=== PATIENT | female | born 1950 | race Caucasian/White ===

== ENCOUNTER → 2016-08-11 | Outpatient (CLI) | payer MEDICARE ==
[~2016-08-11] VITALS: Ht 154.9 cm; Wt 68.0 kg
[~2016-08-11] MED LIST: ACYC-109 PO; ASP81CT PO; ATOR40TA PO; ATOR80TA76 PO; CATHETER FLUSH 10 ML SYR IV PRN; CHOL200035 PO; CIPR500T78 PO; CYCL10TA9 PO; LISI-594 PO; LOVA40TA2 PO; METH4TAB PO; METO25TA2 PO; MULT-963 PO; NO CURRENT HOME MEDS; OMEG-9 PO; OMEG1CAP58 PO; ONDA4TAB11 PO; ONDA4TAB8 PO; PNT40TEC PO; PROM25SU43 RC; RANI300T4 PO; REGADENOSON 0.4 MG/5 ML SYR (LEXISCAN) IV ONE; RNT150T PO; SCOP1PAT TD
[2016-08-11 09:11] VITALS: BP 134/58
[2016-08-11 09:25] VITALS: BP 137/86
[2016-08-11 09:28] VITALS: BP 132/73
--- NOTE | 2016-08-12 08:37 | STRESS TEST ---
PROCEDURE PHYSICIAN: JOANNE LUIS DATE OF PROCEDURE: 08/11/2016 RESTING AND POST REGADENOSON TECHNETIUM 99M TETROFOSMIN SPECT CT IMAGING ORDERING PHYSICIAN: Dr. Luis PRIMARY PHYSICIAN: Dr. Jang CLINICAL DIAGNOSES: 1. Palpitations. 2. Shortness of breath. Baseline images were carried out after injection of 10.35 mCi technetium 99m tetrofosmin. This was followed by 0.4 mg of regadenoson and 31.1 mCi of technetium 99m tetrofosmin for stress imaging. The electrocardiogram showed sinus rhythm with incomplete right bundle branch block at baseline and this did not change significantly with the regadenoson infusion. The patient tolerated the procedure well. Review of images at rest and following stress, does not indicate any significant perfusion defects consistent with myocardial ischemia or infarction. Gated images show normal global left ventricular systolic function with mood regional wall motion. Left ventricular ejection fraction is calculated to be 64%. Left ventricular end-diastolic volume is 29 mL. TID is absent (0.95). CONCLUSIONS: 1. No evidence of any significant myocardial ischemia or infarction on this study. 2. Normal regional wall motion. 3. Normal global left ventricular systolic function with a calculated ejection fraction of 64%. 4. Normal left ventricular cavity size. Job ID: [id number] Dictated Date: 08/11/2016 17:16:59 Oil Separator Date: 08/12/2016 08:32:25 / cliff
== END ==
LOC: CARD 07:28
PROVIDERS: ATTEND Internal Medicine Cardiovascular Disease
DX: R00.2 Palpitations (principal); R06.02 Shortness of breath; I25.10 Atherosclerotic heart disease of native coronary artery without angina pectoris; I65.23 Occlusion and stenosis of bilateral carotid arteries; E78.4 Other hyperlipidemia; I10 Essential (primary) hypertension
CPT/HCPCS: 78452; 93017

== ENCOUNTER → 2016-08-13 | Outpatient (CLI) | payer MEDICARE ==
[~2016-08-13] MED LIST changes: -CATHETER FLUSH 10 ML SYR IV PRN; -REGADENOSON 0.4 MG/5 ML SYR (LEXISCAN) IV ONE
--- NOTE | 2016-08-17 10:16 | ECHOCARDIOGRAPHY REPORT ---
PROCEDURE PHYSICIAN: JOANNE LUIS DATE OF PROCEDURE: 08/13/2016 TWO DIMENSIONAL ECHOCARDIOGRAM REPORT PRIMARY PHYSICIAN: Dr. Jang OTHER PHYSICIAN: REFERRING PHYSICIAN: ORDERING PHYSICIAN: Dr. Luis INDICATION FOR THE PROCEDURE: 1. Palpitations. 2. Shortness of breath. MEASUREMENTS DERIVED VALUES LV DIAMETER (LAX) NORMALS NORMALS Diastolic 4 (3.6-5.2) Eject. Fract. (60%+/-6%) Systolic (2.3-3.9) Diastolic Vol. % Shortening (0.22-0.42) Systolic Vol. Aortic Root 2.8 IVS THICKNESS Diastolic 1.2 (0.6-1.1) LVPW THICKNESS Diastolic 1.2 (0.6-1.1) LA DIAMETER Systolic 3 (2.1-3.7) DESCRIPTION: Two-dimensional echocardiography shows normal global left ventricular systolic function with normal regional wall motion. Aortic, mitral and tricuspid valve leaflets show good leaflet excursion. There is no significant pericardial effusion. Doppler imaging did not indicate significant valvular regurgitation or stenosis. Mitral inflow is consistent with grade 1 diastolic dysfunction of the left ventricle. There is no evidence of any significant intracardiac shunt on this transthoracic echocardiographic study. Inferior vena cava is of normal size and exhibits normal inspiratory collapse. CONCLUSIONS: 1. Normal global left ventricular systolic function with an ejection fraction of approximately 65 to 70%. 2. Borderline concentric left ventricular hypertrophy. 3. Mild diastolic dysfunction of the left ventricle. 4. No significant valvular regurgitation or stenosis. Job ID: [id number] Dictated Date: 08/17/2016 09:07:08 Safety Representative Date: 08/17/2016 10:10:27 / tbk
== END ==
LOC: CARD 12:17
PROVIDERS: ATTEND Internal Medicine Cardiovascular Disease
DX: I25.10 Atherosclerotic heart disease of native coronary artery without angina pectoris (principal); I65.23 Occlusion and stenosis of bilateral carotid arteries; E78.4 Other hyperlipidemia; I10 Essential (primary) hypertension; R00.2 Palpitations; R06.02 Shortness of breath
CPT/HCPCS: 93306

== ENCOUNTER → 2018-09-09 | Outpatient (CLI) | payer MEDICARE ==
[~2018-09-09] MED LIST changes: +CATHETER FLUSH 10 ML SYR IV PRN; +REGADENOSON 0.4 MG/5 ML SYR (LEXISCAN) IV ONE; -SCOP1PAT TD; +SCOP1PAT11 TD
== END ==
LOC: CARD 07:16
PROVIDERS: ATTEND Nurse Practitioner Family
DX: I25.10 Atherosclerotic heart disease of native coronary artery without angina pectoris (principal); I77.9 Disorder of arteries and arterioles, unspecified; I10 Essential (primary) hypertension; E78.5 Hyperlipidemia, unspecified; R06.09 Other forms of dyspnea
CPT/HCPCS: 78452; 93017

== ENCOUNTER → 2021-01-22 | Outpatient (CLI) | payer MEDICARE ==
[~2021-01-22] MED LIST changes: -CATHETER FLUSH 10 ML SYR IV PRN; -REGADENOSON 0.4 MG/5 ML SYR (LEXISCAN) IV ONE
--- NOTE | 2021-01-23 11:46 | Diagnostic Imaging Report ---
INDICATION: Routine screening. COMPARISON is made with prior mammograms from 09/09/2009 and 03/15/2009. 2-D and 3-D bilateral screening mammography was performed with CAD. FINDINGS: Both breasts are primarily involutional. No dominant mass or malignant-appearing microcalcifications are seen. There are benign calcifications present. Axillae are unremarkable. IMPRESSION: BI-RADS Category 2 No mammographic features suspicious for malignancy are identified. ACR BI-RADS Category 2: Benign findings. Result letter will be mailed to the patient. Note: At least 10% of breast cancer is not imaged by mammography. Dictated by: Dictated on workstation # [id number]
== END ==
LOC: RAD 14:45
PROVIDERS: ATTEND Registered Nurse
DX: Z12.31 Encounter for screening mammogram for malignant neoplasm of breast (principal)
CPT/HCPCS: 77063; 77067

== ENCOUNTER → 2021-10-31 | Outpatient (CLI) | payer MEDICARE ==
[~2021-10-31] MED LIST changes: +REGADENOSON 0.4 MG/5 ML SYR (LEXISCAN) IV ONE; +SCOP1PAT10 TD; -SCOP1PAT11 TD
[2021-10-31] MEDS: CATHETER FLUSH 10 ML SYR IVP PRN ×2 (07:48→09:15)
[2021-10-31 09:14] VITALS: BP 130/99
--- NOTE | 2021-11-05 14:44 | STRESS TEST ---
DATE OF SERVICE: 10/31/2021 RESTING AND POST REGADENOSON TECHNETIUM-99M TETROFOSMIN SPECT CT IMAGING Baseline images were carried out after injection of 10.88 mCi of technetium-99m Tetrofosmin. This was followed by 0.4 mg Regadenoson and 30.5 mCi of technetium-99m Tetrofosmin for stress imaging. The patient tolerated the procedure well. The electrocardiogram did not indicate significant changes. There was subtle nonspecific ST abnormality at baseline that did not change significantly. Review of images at rest and following stress does not indicate any significant perfusion defects consistent with myocardial ischemia or infarction. Gated images show normal global left ventricular systolic function with normal regional wall motion. Left ventricular ejection fraction is calculated to be 66%. CONCLUSIONS: 1. No evidence of any significant myocardial ischemia or infarction on this study. 2. Normal regional wall motion. 3. Normal global left ventricular systolic function with a calculated ejection fraction of 66%. Job ID: [id number] DocumentID: [id number] Dictated Date: 11/05/2021 09:17:00 Accountant Certified Public Date: 11/05/2021 14:44:16 Dictated By: JOANNE SHAFFER MD, MA, FACP, FACC,
== END ==
LOC: CARD 08:00
PROVIDERS: ATTEND Nurse Practitioner Family
DX: I25.10 Atherosclerotic heart disease of native coronary artery without angina pectoris (principal)
CPT/HCPCS: 78452; 93017; A9502

== ENCOUNTER → 2022-02-25 | Outpatient (CLI) | payer MEDICARE ==
[~2022-02-25] MED LIST changes: -REGADENOSON 0.4 MG/5 ML SYR (LEXISCAN) IV ONE
--- NOTE | 2022-02-25 16:31 | Diagnostic Imaging Report ---
INDICATION: Routine screening. COMPARISON: 01/22/2021. TECHNIQUE: 2D and 3D bilateral screening mammography was performed with CAD. FINDINGS: Scattered fibroglandular densities are identified bilaterally. No mass or malignant-appearing microcalcifications are seen. There are occasional benign calcifications present. The axillae are unremarkable. IMPRESSION: No mammographic features suspicious for malignancy are identified. ACR BI-RADS Category 2: Benign findings. Result letter will be mailed to the patient. Note: At least 10% of breast cancer is not imaged by mammography. Dictated by: Dictated on workstation # [id number]
== END ==
LOC: RAD 14:45
PROVIDERS: ATTEND Registered Nurse
DX: Z12.31 Encounter for screening mammogram for malignant neoplasm of breast (principal)
CPT/HCPCS: 77063; 77067